=== PATIENT | male | born 1960 | race Caucasian/White ===

== ENCOUNTER 2020-07-23 01:27 | Emergency (ER) | payer OTHER ==
[~2020-07-23] VITALS: Ht 180.3 cm; Wt 90.0 kg
[2020-07-23] MEDS ORDERED: ONDANSETRON HCL 4MG/2ML INJ IV STA (01:50)
[2020-07-23] MEDS ORDERED: MORPHINE SULFATE 4 MG/ML CPJ (NOT FOR IM USE) IV STA (01:50)
[2020-07-23] MEDS ORDERED: LIDOCAINE HCL/EPINEPHRINE 1%-EPI 1:100,000 10 ML VIAL IJ ONE (02:00)
[2020-07-23] MEDS ORDERED: SODIUM CHLORIDE 0.9% 1,000 ML IV ONE (02:00)
[2020-07-23] MEDS ORDERED: TETANUS, DIPHTHERIA, PERTUSSIS VAC/PF 0.5ML (>7YR OLD) IM ONE (02:00)
[2020-07-23] MEDS ORDERED: BACITRACIN ZINC OINT UDPKT TOP ONE (02:00)
[2020-07-23] MEDS ORDERED: LIDOCAINE HCL/EPINEPHRINE 1%-EPI 1:100,000 20 ML VIAL INFIL NR (02:30)
[2020-07-23] MEDS ORDERED: MORPHINE SULFATE 4 MG/ML CPJ (NOT FOR IM USE) IV ONE (03:00)
[2020-07-23] MEDS ORDERED: ETOMIDATE 2MG/ML 10ML VIAL IV ONE (03:00)
[2020-07-23] MEDS ORDERED: IBUP-2028 MT (06:16)
[2020-07-23 07:00] VITALS: BP 128/73
== END 2020-07-23 07:25 | disposition home or self-care (01) ==
LOC: ER 01:27
DX: S01.01XA Laceration without foreign body of scalp, initial encounter (principal); S53.194A Other dislocation of right ulnohumeral joint, initial encounter; I49.9 Cardiac arrhythmia, unspecified; V49.49XA Driver injured in collision with other motor vehicles in traffic accident, initial encounter; Y93.89 Activity, other specified; Y92.89 Other specified places as the place of occurrence of the external cause; Y99.8 Other external cause status
CPT/HCPCS: 12004; 24600; 70450; 73080; 90471; 90715; 93005; 96361; 96374; 99152; 99285; A4217; J2270; J2405; J3490; J7030; Z7610; 96375